=== PATIENT | female | born 1980 | race African-American/Black ===

== ENCOUNTER 2016-06-26 14:13 | Emergency (ER) | payer OTHER ==
[~2016-06-26] VITALS: Ht 170.2 cm; Wt 58.1 kg
[2016-06-26] MEDS ORDERED: MECLIZINE 25 MG TABLET PO ONE (15:15)
[2016-06-26] MEDS ORDERED: NS 1,000 ML IV ONE (15:15)
[2016-06-26 15:50] LABS: BASO % 0.8 % (0.0-1.0); EOS # 0.4 K/mm3 (0.0-0.50); EOS % 7.7 % (0.0-3.0); LARGE UNSTAINED CELL # 0.1 K/mm3 (0.0-0.4); LARGE UNSTAINED CELL % 1.7 % (0.0-4.0); LYMPH # 2.3 K/mm3 (1.5-4.5); LYMPH % 41.2 % (24.0-44.0); MEAN CORPUSCULAR HEMOGLOBIN 32.3 pg (27.0-33.0); MEAN CORPUSCULAR HGB CONC 32.5 g/dl (32.0-36.5); MEAN CORPUSCULAR VOLUME 99.3 fl (80.0-96.0); MONO # 0.2 K/mm3 (0.0-0.8); MONO % 3.1 % (0.0-5.0); NEUTROPHILS # 2.5 K/mm3 (1.8-7.7); NEUTROPHILS % 45.5 % (36.0-66.0); PLATELET COUNT, AUTOMATED 178 k/mm3 (150-450); WHITE BLOOD COUNT 5.5 K/mm3 (4.0-10.0)
[2016-06-26 16:04] LABS: CONTROL LINE HCG INT CTR LINE PRESENT
[2016-06-26 16:14] LABS: ALBUMIN 3.7 GM/DL (3.2-5.2); ALBUMIN/GLOBULIN RATIO 1.19 (1.00-1.93); ALKALINE PHOSPHATASE 47 U/L (45-117); ALT/SGPT 13 U/L (12-78); ANION GAP 6 MEQ/L (8-16); AST/SGOT 11 U/L (15-37); BILIRUBIN,DIRECT 0.2 MG/DL (0.0-0.2); BILIRUBIN,TOTAL 0.7 MG/DL (0.2-1.0); BLOOD UREA NITROGEN 9 MG/DL (7-18); CALCIUM LEVEL 8.6 MG/DL (8.5-10.1); CARBON DIOXIDE LEVEL 29 MEQ/L (21-32); CHLORIDE LEVEL 105 MEQ/L (98-107); CREATININE FOR GFR 0.81 MG/DL (0.55-1.02); GLOMERULAR FILTRATION RATE > 60.0 (>60); GLUCOSE, FASTING 98 MG/DL (70-105); POTASSIUM SERUM 4.3 MEQ/L (3.5-5.1); SODIUM LEVEL 140 MEQ/L (136-145); TOTAL PROTEIN 6.8 GM/DL (6.4-8.2)
--- NOTE | 2016-06-26 17:36 | REP ---
CT HEAD WITHOUT CONTRAST: HISTORY: Altered mental status. COMPARISON: None. TECHNIQUE: 4.5 mm contiguous transaxial sections were obtained from the skull base to the cerebral convexities with thin cuts through the posterior fossa without the administration of intravenous contrast. FINDINGS: The ventricles and sulci are consistent with the patient's age. There are no extra-axial fluid collections. There is no mass effect. The deep cerebral white matter is consistent with the patient's age. The orbital and petrous structures , cerebellopontine angles, and posterior fossa are unremarkable. The sella turcica, cavernous, and paracavernous structures are essentially unremarkable. The visualized portions of the paranasal sinuses and mastoid air cells are clear. Images of the skull base show no gross abnormality. IMPRESSION: Essentially unremarkable CT examination of the brain. Signed by Karan Norman DO 06/26/2016 06:27 P
[2016-06-26 17:50] LABS: METHADONE URINE NEGATIVE (NEGATIVE)
[2016-06-26] MEDS ORDERED: MECL-68 PO (17:51)
--- NOTE | 2016-06-26 18:19 | ECGEPIP ---
Stationary ECG Study [facility] - ED Test Date: 2016-06-26 Pat Name: REED RAMOS Department: Room: - Gender: F Director Skills: : 1980 Requested By: CHIVO EVERETT Order Number: [id number] Reading MD: Devon Simons Measurements Intervals [place] Rate: 74 P: 62 IA: 211 QRS: 67 QRSD: 87 T: 44 QT: 361 QTc: 402 Interpretive Statements SINUS RHYTHM WITH FIRST DEGREE AV BLOCK NONSPECIFIC T-WAVE ABNORMALITY NO PRIORS Electronically Signed On 06-26-2016 18:19:12 EDT by Devon Simons
[2016-06-26 19:04] VITALS: BP 97/53
== END 2016-06-26 19:08 | disposition home or self-care (01) ==
LOC: M ED 15:20
DX: H83.09 Labyrinthitis, unspecified ear (principal)
CPT/HCPCS: 70450; 80048; 80076; 80306; 81001; 82550; 82553; 83735; 84443; 84703; 85025; 87086; 93005; 93041; 94760; 99284; G0480

== ENCOUNTER 2018-05-22 14:56 | Emergency (ER) | payer OTHER ==
[~2018-05-22] VITALS: Ht 170.2 cm; Wt 59.1 kg
[~2018-05-22 14:56] MED LIST: MECL-68 PO
[2018-05-22] MEDS ORDERED: CYCL10TA PO (15:00)
[2018-05-22] MEDS ORDERED: MAXA10TA14 PO (15:00)
[2018-05-22 16:40] VITALS: BP 104/72
[2018-05-22] MEDS ORDERED: NAPROXEN 250 MG TAB PO ONE (16:45)
== END 2018-05-22 16:42 | disposition home or self-care (01) ==
LOC: M ED 14:56
DX: J02.8 Acute pharyngitis due to other specified organisms (principal); M79.10 Myalgia, unspecified site